=== PATIENT | male | born 1950 | race Caucasian/White ===

== ENCOUNTER 2016-12-08 22:56 | Emergency (ER) | payer OTHER, MEDICARE ==
[2016-12-08 23:00] VITALS: BP 130/75
[2016-12-08 23:17] LABS: Hematocrit 52 % (42-52); Hemoglobin 17.3 g/dl (14.0-18.0); Mean Corpuscular HGB Conc 33 g/dl (31-36); Mean Corpuscular Hemoglobin 32 pg (27-31); Mean Corpuscular Volume 96 fL (80-94); Mean Platelet Volume 8 um3 (7.4-10.4); Red Blood Count 5.46 10^6/ul (4.0-5.4); Red Cell Distribution Width 14 % (10.5-15); White Blood Count 9.5 10^3/ul (3.5-10.8)
[2016-12-08 23:32] LABS: Albumin 4.3 g/dL (3.2-5.2); EGFR African American 77.9 (>60); EGFR Non-African American 60.6 (>60); Globulin 3.3 g/dL (2-4); Potassium 3.8 mmol/L (3.5-5.0); Total Bilirubin 0.9 mg/dL (0.2-1.0); Total Protein 7.6 g/dL (6.4-8.9)
== END 2016-12-09 00:02 | disposition left against medical advice (07) ==
LOC: ED 22:56
DX: R10.31 Right lower quadrant pain (principal); Z53.21 Procedure and treatment not carried out due to patient leaving prior to being seen by health care provider
CPT/HCPCS: 36415; 80053; 85025